=== PATIENT | female | born 1985 | race Two or more races ===

== ENCOUNTER 2016-05-26 11:38 | Inpatient (IN) | payer SELFPAY ==
[~2016-05-26] VITALS: Ht 158.8 cm; Wt 110.2 kg
[~2016-05-26 11:38] MED LIST: RANI150T6 PO
[2016-05-26] MEDS ORDERED: IBUPROFEN 800 MG TABLET. PO PRN (13:45)
[2016-05-26] MEDS ORDERED: TERBUTALINE 1 MG/ML VIAL. SQ PRN (13:45)
[2016-05-26] MEDS ORDERED: BUTORPHANOL 2 MG VIAL. IV PRN (13:45)
[2016-05-26] MEDS ORDERED: FENTANYL PF 100 MCG/2 ML VIAL. IV PRN (13:45)
[2016-05-26] MEDS ORDERED: CITRIC ACID/SODIUM CITRATE 30 ML SOLUTION. PO PRN (13:45)
[2016-05-26] MEDS ORDERED: MAG HYDROX/AL HYDROX/SIMETH 30 ML ORAL.SUSP PO PRN (13:45)
[2016-05-26] MEDS ORDERED: 0.9 % SODIUM CHLORIDE 10 ML DISP.SYRIN. IV PRN (13:45)
[2016-05-26] MEDS ORDERED: LIDOCAINE 1% PF 30 ML VIAL. INJ PRN (13:45)
[2016-05-26] MEDS ORDERED: OXYTOCIN 30 UNIT/500 ML PREMIX 500 ML IV PRN ×2 (13:45)
[2016-05-26 13:49] VITALS: BP 125/79
[2016-05-26] MEDS: IV RINGERS,LACTATED 1000ML 1,000 ML IV PRN ×2 (13:56→20:37)
[2016-05-26 14:36] LABS: BASO # 0.1 x10^3/uL (0.0-0.2); BASO % 1 % (0-3); EOS % 1 % (0-3); HEMATOCRIT 33.4 % (36.0-47.0); HEMOGLOBIN 10.5 g/dL (12.0-15.5); LYMPH # 2.6 x10^3/uL (1.0-4.8); LYMPH % 21 % (24-48); MEAN CORPUSCULAR HEMOGLOBIN 23 pg (25-35); MEAN CORPUSCULAR HGB CONC 31 g/dL (31-37); MEAN CORPUSCULAR VOLUME 73 fL (79-100); MONO % 5 % (0-9); NEUT % 72 % (31-73); PLATELET COUNT 225 x10^3/uL (140-400); RED BLOOD COUNT 4.57 x10^6/uL (3.50-5.40); WHITE BLOOD COUNT 12.3 x10^3/uL (4.0-11.0)
[2016-05-26] MEDS ORDERED: DINOPROSTONE 10 MG SUPP.VAG VG ONE (15:45)
[2016-05-26 16:09] LABS: PLT ESTIMATE ADEQUATE (ADEQUATE); POLYCHROMASIA SLIGHT
[2016-05-26 16:10] LABS: OVALOCYTES OCC; TARGET CELLS OCC
[2016-05-26] MEDS ORDERED: ZOLPIDEM 5 MG TABLET. PO PRN (21:15)
[2016-05-27] MEDS: IV RINGERS,LACTATED 1000ML 1,000 ML IV PRN ×3 (03:23→18:16)
[2016-05-27 05:53] VITALS: BP 125/79
[2016-05-27] MEDS ORDERED: OXYTOCIN in NORMAL SALINE PREMIX 30 UNIT/500 ML BAG. IV ONE (06:00)
[2016-05-27] MEDS ORDERED: LIDOCAINE 2% PF Vial for OR 5 ML VIAL. ONE (11:51)
[2016-05-27] MEDS ORDERED: L&D EPIDURAL CASSETTE 100 ML EP ONE (11:58)
[2016-05-27] MEDS ORDERED: NALOXONE 0.4 MG/ML VIAL. IV PRN (12:15)
[2016-05-27] MEDS ORDERED: EPHEDRINE PF IN SALINE 50 MG/5 ML DISP.SYRIN. IV PRN (12:15)
[2016-05-27] MEDS ORDERED: IV RINGERS,LACTATED 1000ML 1,000 ML IV SCH (12:15)
[2016-05-27] MEDS ORDERED: FENTANYL PF 100 MCG/2 ML VIAL. EPI PRN (12:15)
[2016-05-27] MEDS ORDERED: ROPIVacaine 0.2% IN 0.9%NACL PF 40 MG/20 ML DISP.SYRIN. EPI PRN (12:15)
[2016-05-27] MEDS ORDERED: L&D EPIDURAL CASSETTE 100 ML EP PRN (12:15)
[2016-05-27] MEDS ORDERED: ONDANSETRON PF 4 MG/2 ML VIAL. IV PRN (12:15)
[2016-05-27] MEDS ORDERED: SIMETHICONE 80 MG TAB.CHEW PO PRN (19:30)
[2016-05-27] MEDS ORDERED: 0.9 % SODIUM CHLORIDE 10 ML DISP.SYRIN. IV PRN (19:30)
[2016-05-27] MEDS ORDERED: HYDROCODONE/APAP 5/325MG TABLET. PO PRN (19:30)
[2016-05-27] MEDS ORDERED: BENZOCAINE 20% TOPICAL AEROSOL SPRAY 57GM CAN. TP PRN (19:30)
[2016-05-27] MEDS ORDERED: PHENYLEPH/MINERAL OIL/PETROLAT RECTAL OINTMENT 28GM TUBE. RC PRN (19:30)
[2016-05-27] MEDS ORDERED: ZOLPIDEM 5 MG TABLET. PO PRN (19:30)
[2016-05-27] MEDS ORDERED: DIPHENHYDRAMINE HCL 25 MG CAPSULE PO PRN (19:30)
[2016-05-27] MEDS ORDERED: MAG HYDROX/AL HYDROX/SIMETH 30 ML ORAL.SUSP PO PRN (19:30)
[2016-05-27] MEDS ORDERED: ACETAMINOPHEN 325 MG TABLET. PO PRN (19:30)
[2016-05-27] MEDS ORDERED: OXYTOCIN 30 UNIT/500 ML PREMIX 500 ML IV PRN (19:30)
[2016-05-27] MEDS ORDERED: HYDROCORTISONE 1% TOPICAL OINTMENT 30GM TUBE. TP PRN (19:30)
[2016-05-27] MEDS ORDERED: MAGNESIUM HYDROXIDE 2,400 MG/30 ML ORAL.SUSP. PO PRN (19:30)
[2016-05-27] MEDS: IBUPROFEN 800 MG TABLET. PO SCH (20:43)
[2016-05-27 21:55] VITALS: BP 89/61
[2016-05-28 03:30] VITALS: BP 102/55
[2016-05-28 06:30] VITALS: BP 108/67
[2016-05-28] MEDS: IBUPROFEN 800 MG TABLET. PO SCH ×2 (06:50→18:41)
[2016-05-28] MEDS ORDERED: FERROUS SULFATE 325 MG TABLET PO SCH (08:00)
--- NOTE | 2016-05-28 10:29 | PDOC ---
Provider Note Provider Note Doing well VSS Uterus NTTP FU in AM REMBERTO ADRIAN MD May 28, 2016 10:28
[2016-05-28 10:30] VITALS: BP 96/68
--- NOTE | 2016-05-28 10:33 | PDOC1 ---
OB - History Hx of Present Care: Good Care Ultrasounds: Normal mid trimester US Obstetrical Complications: Growth Restriction, Other (oligo) Medical Complications: None Past Family/Social History * Past Medical, Surgical, Family and Obstetric Histories reviewed from chart. Blood Type: O+ Rubella: Immune RPR/VDRL: Negative GBS Status: Negative HBsAG: Negative OB - Chief Complaint & HPI Date of Admission: Date of Admission: May 26, 2016 at 11:38 Chief Complaint/History : 2 Para: 0 EDC: May 31, 2016 Reason for admission: induction of labor Indication for induction: other (oligo) Admission Nurse Assessment Rev: Yes Problems: OB - Admission Exam Physical Exam Vitals: VS - Last 72 Hours, by Label Date Time Temp Pulse Resp B/P Pulse Ox O2 Delivery O2 Flow Rate FiO2 05/28/16 08:45 Room Air 05/28/16 06:30 97.9 71 14 108/67 98 Room Air 97.9 05/28/16 03:30 98.2 60 16 102/55 97 Room Air 98.2 05/27/16 21:55 Room Air 05/27/16 21:55 98.4 109 20 89/61 98 98.4 05/27/16 12:23 20 05/27/16 05:53 98.7 77 125/79 98.7 05/27/16 01:30 18 Room Air 05/27/16 01:00 18 Room Air 05/26/16 13:49 98.7 77 20 125/79 Room Air 98.7 HEENT: Normal, Nasal Mucosa Normal, Oropharynx Normal, Moist Membranes, Fontanelles Normal Heart: Regular Rate Lungs: Clear, Equal Abdomen: Gravid Extremities: Normal Pulses, No tenderness or swelling Reflexes: Normal Cervical Dilatation: 2cm Effacement: 50% Station: Ballotable Membranes: Intact Amniotic Fluid: Clear Heart Rate: Normal Accelerations: Accelerations Present Intensity: Mild Assessment/Plan Assessment/Plan TIUP oligo IUGR induction ACS REMBERTO ADRIAN MD May 28, 2016 10:33
--- NOTE | 2016-05-28 10:35 | PDOC ---
VAGINAL DELIVERY DATE DATE: 05/28/16 TIME: 10:33 : 2 EDC: May 31, 2016 VAGINAL DELIVERY: VTX VACCUM ASSISTED: Yes NUMBER OF PULLS 3 NUMBER OF POP OFFS 2 SEX: Female WEIGHT 7#1oz Nuchal Cord: No Amniotic Fluid: Clear PAIN: Epidural EPISIOTOMY: Yes EXTENSION: No EBL 400cc COMPLICATIONS None CONDITION Stable Signs of Intrauterine Infectio: None Shoulder Dystocia: No DIAGNOSIS TIUP del Problems: REMBERTO ADRIAN MD May 28, 2016 10:35
[2016-05-28 23:03] VITALS: BP 124/78
[2016-05-28] MEDS ORDERED: INFLUENZA VAX SCREEN BY RX. MC PRN (23:30)
[2016-05-29] MEDS: IBUPROFEN 800 MG TABLET. PO SCH ×2 (05:51→14:57)
[2016-05-29 06:39] VITALS: BP 122/74
[2016-05-29] MEDS ORDERED: FLU VACC QUAD 2016-17 (36MOS+)/PF 0.5 ML SYRINGE. VAX IM ONE (09:00)
[2016-05-29 09:59] VITALS: BP 125/61
--- NOTE | 2016-05-29 10:32 | PDOC3 ---
OB DISCHARGE SUMMARY DATE OF ADMISSION: 05/26/15 DATE OF DISCHARGE: 05/29/15 REASON FOR ADMISSION: Induction of labor PROCEDURES: Ultrasound INTRAPARTUM PROCEDURES: Spontanous Vag Deliv PROCEDURES: None OPERATIONS: None DISCHARGE DIAGNOSIS: Term Delivered DISCHARGE INFORMATION: Activity, Diet HOSPITAL COURSE unremarkable CONDITION AT DISCHARGE Stable REMBERTO ADRIAN MD May 29, 2016 10:32
[2016-05-29] MEDS ORDERED: NAPR500T3 PO (10:35)
[2016-05-29] MEDS ORDERED: HYDR-971 PO (10:35)
== END 2016-05-29 15:30 | disposition home or self-care (01) | DRG 775 ==
LOC: 3 SO LND 11:38 → 3 NORTH 05-27 20:45
PROVIDERS: ADMIT Specialist; ATTEND Specialist
PROC: 3E033VJ Introduction of Other Hormone into Peripheral Vein, Percutaneous Approach (ICD-10-PCS; principal; 2016-05-28)
PROC: 10D07Z6 Extraction of Products of Conception, Vacuum, Via Natural or Artificial Opening (ICD-10-PCS; 2016-05-28)
PROC: 0W8NXZZ Division of Female Perineum, External Approach (ICD-10-PCS; 2016-05-28)
PROC: 3E0S3CZ (ICD-10-PCS; 2016-05-28)
PROC: 00HU33Z Insertion of Infusion Device into Spinal Canal, Percutaneous Approach (ICD-10-PCS; 2016-05-28)
DX: O36.5990 Maternal care for other known or suspected poor fetal growth, unspecified trimester, not applicable or unspecified (principal); O41.03X0 Oligohydramnios, third trimester, not applicable or unspecified; Z3A.39 39 weeks gestation of pregnancy; Z37.0 Single live birth
CPT/HCPCS: 36415; 85007; 85014; 85027; 86593; 86850; 86900; 86901; 90686; J2590; J7120

== ENCOUNTER 2019-05-16 23:41 | Emergency (ER) | payer SELFPAY ==
[~2019-05-16] VITALS: Ht 162.6 cm; Wt 110.2 kg
[~2019-05-16 23:41] MED LIST changes: +HYDR-3164 PO; +NAPR-514 PO; +RANI-376 PO; -RANI150T6 PO
[2019-05-17 00:10] VITALS: BP 153/84
[2019-05-17 00:43] LABS: INFLUENZA A PATIENT NEGATIVE (NEGATIVE); INFLUENZA B PATIENT NEGATIVE (NEGATIVE)
--- NOTE | 2019-05-17 00:58 | PHYS DOC ---
Past Medical History Past Medical History: No Pertinent History (MELVA DAVID APRN) Past Surgical History: No Surgical History (MELVA DAVID APRN) Alcohol Use: None Drug Use: None (MELVA DAVID APRN) Attending Signature I have participated in the care of this patient and I have reviewed and agree with all pertinent clinical information above including history, exam, and recommendations. (MARKY WELLS MD) Adult General Chief Complaint Chief Complaint: FEVER HPI HPI Patient is a 33 year old female who presents with chills and vomiting off and on since Monday. Patient states that she will keep down fluids and food that sometimes it will come back up. She also states she has burning when she urinates. She also is to be checked for . (MELVA DAVID APRN) Review of Systems Review of Systems Constitutional: Denies fever. +chills [] GI: Denies abdominal pain. + nausea, +vomiting, denies bloody stools or diarrhea [] : dysuria or denies hematuria [] All other systems were reviewed and found to be within normal limits, except as documented in this note. (MELVA DAVID APRN) Allergies Allergies Allergies Coded Allergies Type Severity Reaction Last Updated Verified No Known Drug Allergies 11/01/15 No (MARKY WELLS MD) Physical Exam Physical Exam Constitutional: Well developed, well nourished, no acute distress, non-toxic appearance. [] HENT: Normocephalic, atraumatic, bilateral external ears normal, oropharynx moist, no oral exudates, nose normal. [] Eyes: PERRLA, EOMI, conjunctiva normal, no discharge. [] Neck: Normal range of motion, no tenderness, supple, no stridor. [] Cardiovascular:Heart rate regular rhythm, no murmur [] Lungs & Thorax: Bilateral breath sounds clear to auscultation [] Abdomen: Bowel sounds normal, soft, no tenderness, no masses, no pulsatile masses. [] Skin: Warm, dry, no erythema, no rash. [] Back: No tenderness, no CVA tenderness. [] Extremities: No tenderness, no cyanosis, no clubbing, ROM intact, no edema. [] Neurologic: Alert and oriented X 3, normal motor function, normal sensory function, no focal deficits noted. [] Psychologic: Affect normal, judgement normal, mood normal. Normal Physical Exam[] (MELVA DAVID APRN) Current Patient Data Vital Signs Vital Signs Date Time Temp Pulse Resp B/P (MAP) Pulse Ox O2 Delivery O2 Flow Rate FiO2 05/17/19 00:10 98.0 69 12 153/84 (107) 100 Room Air 98.0 (MARKY WELLS MD) Lab Values Laboratory Tests Test 05/17/19 00:12 05/17/19 01:03 05/17/19 01:08 Influenza Type A Antigen Negative (NEGATIVE) Influenza Type B Antigen Negative (NEGATIVE) Urine Collection Type Unknown Urine Color Yellow Urine Clarity Clear Urine pH 6.5 Urine Specific [place] 1.025 Urine Protein Negative mg/dL (NEG-TRACE) Urine Glucose (UA) Negative mg/dL (NEG) Urine Ketones (Stick) Negative mg/dL (NEG) Urine Blood Negative (NEG) Urine Nitrite Positive (NEG) Urine Bilirubin Negative (NEG) Urine Urobilinogen Dipstick 2.0 mg/dL (0.2 mg/dL) Urine Leukocyte Esterase Moderate (NEG) Urine RBC 0 /HPF (0-2) Urine WBC 11-20 /HPF (0-4) Urine Squamous Epithelial Cells Mod /LPF Urine Bacteria Many /HPF (0-FEW) Urine Mucus Mod /LPF POC Urine HCG, Qualitative Hcg positive (Negative) (MARKY WELLS MD) EKG EKG [] (MELVA DAVID APRN) Radiology/Procedures Radiology/Procedures [] (MELVA DAVDI APRN) Course & Med Decision Making Course & Med Decision Making Abdomen soft and nontender. Vital signs within normal limits. Ambulatory with a steady gait. Skin pink warm and dry. Mucous membranes are moist. Alert And oriented. Bilateral tympanic white. Throat is pink without exudates or swelling. Speaks in full clear sentences. No CVA tenderness. Patient denies diarrhea, chest pain, shortness of air, dizziness, syncope, headache, visual changes, numbness or tingling. Urinalysis shows infection. Urinalysis is positive . (MELVA DAVID APRN) Dragon Disclaimer Dragon Disclaimer This electronic medical record was generated, in whole or in part, using a voice recognition dictation system. (MELVA DAVID APRN) Departure Departure Impression: Primary Impression: Additional Impression: UTI (urinary tract infection) Disposition: 01 HOME, SELF-CARE Condition: STABLE Referrals: NO PCP (PCP) Patient Instructions: ABCs of , - Urinary Tract Infection Additional Instructions: Follow-up within [employer] [facility] as soon as possible. Drink plenty of fluids. Take medications as prescribed. Scripts Ondansetron (ONDANSETRON ODT) 4 Mg Tab.rapdis 1 TAB PO PRN Q6-8HRS, #16 TAB Prov: MELVA DAVID APRN 05/17/19 Cephalexin (KEFLEX) 500 Mg Capsule 1 CAP PO BID for 7 Days, #14 CAP 0 Refills Prov: MELVA DAVID APRN 05/17/19 Problem Qualifiers Primary Impression: Weeks of gestation: unspecified Qualified Codes: Z34.90 - Encounter for supervision of normal , unspecified, unspecified trimester Additional Impression: UTI (urinary tract infection) Urinary tract infection type: site unspecified Hematuria presence: without hematuria Qualified Codes: N39.0 - Urinary tract infection, site not specified MELVA DAVID APRN May 17, 2019 00:58 MARKY WELLS MD May 17, 2019 03:02
[2019-05-17 01:21] LABS: BILIRUBIN,URINE NEGATIVE (NEG); CLARITY,URINE CLEAR; COLOR,URINE YELLOW; NITRITE,URINE POSITIVE (NEG); PH,URINE 6.5; PROTEIN,URINE NEGATIVE (NEG-TRACE)
[2019-05-17 01:28] LABS: BACTERIA,URINE MANY /HPF (0-FEW); RBC,URINE 0 /HPF (0-2); SQUAMOUS EPITHELIAL CELL,UR MOD /LPF
[2019-05-17] MEDS ORDERED: ONDA4TAB12 PO (01:34)
[2019-05-17] MEDS ORDERED: CEPH-264 PO (01:34)
== END 2019-05-17 01:40 | disposition home or self-care (01) ==
LOC: ER 23:41
DX: O23.40 Unspecified infection of urinary tract in pregnancy, unspecified trimester (principal); O21.9 Vomiting of pregnancy, unspecified; Z3A.00 Weeks of gestation of pregnancy not specified
CPT/HCPCS: 81001; 81025; 87086; 87804; 99284

== ENCOUNTER 2019-05-27 22:33 | Emergency (ER) | payer SELFPAY ==
[~2019-05-27] VITALS: Ht 162.6 cm; Wt 94.3 kg
[~2019-05-27 22:33] MED LIST changes: +CEPH-264 PO; +ONDA4TAB12 PO
--- NOTE | 2019-05-27 23:57 | PHYS DOC ---
Past Medical History Past Medical History: No Pertinent History Past Surgical History: No Surgical History Alcohol Use: None Drug Use: None Adult General Chief Complaint Chief Complaint: MULTIPLE COMPLAINTS HPI HPI 33-year-old female presents to the emergency department with complaints of fever, body aches, reflux, abdominal pain. She denies any vaginal bleeding or discharge. She does have vomiting, and nausea. Last menstrual period is unknown, patient had a positive test on May 16 however no confirmation of intrauterine . Nothing makes her symptoms worse, nothing makes her symptoms better. Review of Systems Review of Systems Constitutional: fever/chills Eyes: Denies change in visual acuity, redness, or eye pain [] HENT: Denies nasal congestion or sore throat [] Respiratory: Denies cough or shortness of breath [] Cardiovascular: No additional information not addressed in HPI [] GI: + abdominal pain, nausea, vomiting, no bloody stools or diarrhea [] : Denies dysuria or hematuria [] Musculoskeletal: Denies back pain or joint pain [] Integument: Denies rash or skin lesions [] Neurologic: + headache, no focal weakness or sensory changes [] All other systems were reviewed and found to be within normal limits, except as documented in this note. Current Medications Current Medications Current Medications Medications (Trade) Dose Ordered Sig/Steve Start Time Stop Time Status Last Admin Dose Admin Acetaminophen (Tylenol) 1,000 mg 1X ONCE 05/28/19 00:30 05/28/19 00:31 DC 05/28/19 00:15 1,000 MG Ondansetron HCl (Zofran) 4 mg 1X ONCE 05/28/19 00:30 05/28/19 00:31 DC 05/28/19 00:44 4 MG Potassium Chloride (Klor-Con) 40 meq 1X ONCE 05/28/19 01:30 05/28/19 01:31 DC 05/28/19 01:39 40 MEQ Sodium Chloride 1,000 ml @ 1,000 mls/hr Q1H 05/28/19 00:00 05/28/19 00:59 DC 05/28/19 00:15 1,000 MLS/HR Allergies Allergies Allergies Coded Allergies Type Severity Reaction Last Updated Verified I S O L A T I O N *CONTACT* Allergy Unknown 05/21/19 Yes No Known Medication Allergies Allergy Unknown 05/21/19 Yes Physical Exam Physical Exam Constitutional: Well developed, well nourished, no acute distress, non-toxic appearance. [] HENT: Normocephalic, atraumatic, bilateral external ears normal, oropharynx moist, no oral exudates, nose normal. [] Eyes: PERRLA, EOMI, conjunctiva normal, no discharge. [] Cardiovascular:Heart rate regular rhythm, no murmur [] Lungs & Thorax: Bilateral breath sounds clear to auscultation [] Abdomen: Bowel sounds normal, soft, no tenderness, no masses, no pulsatile masses. [] Skin: Warm, dry, no erythema, no rash. [] Back: No tenderness, no CVA tenderness. [] Extremities: No tenderness, no edema. [] Neurologic: Alert and oriented X 3, no focal deficits noted. [] Psychologic: Affect normal, judgement normal, mood normal. [] Current Patient Data Vital Signs Vital Signs Date Time Temp Pulse Resp B/P (MAP) Pulse Ox O2 Delivery O2 Flow Rate FiO2 05/27/19 23:22 99.7 92 18 110/55 (73) 100 Room Air 99.7 Lab Values Laboratory Tests Test 05/28/19 00:20 White Blood Count 5.0 x10^3/uL (4.0-11.0) Red Blood Count 5.08 x10^6/uL (3.50-5.40) Hemoglobin 10.4 g/dL (12.0-15.5) L Hematocrit 33.1 % (36.0-47.0) L Mean Corpuscular Volume 65 fL (79-100) L Mean Corpuscular Hemoglobin 21 pg (25-35) L Mean Corpuscular Hemoglobin Concent 32 g/dL (31-37) Red Cell Distribution Width 17.7 % (11.5-14.5) H Platelet Count 184 x10^3/uL (140-400) Neutrophils (%) (Auto) 62 % (31-73) Lymphocytes (%) (Auto) 20 % (24-48) L Monocytes (%) (Auto) 17 % (0-9) H Eosinophils (%) (Auto) 0 % (0-3) Basophils (%) (Auto) 1 % (0-3) Neutrophils # (Auto) 3.1 x10^3/uL (1.8-7.7) Lymphocytes # (Auto) 1.0 x10^3/uL (1.0-4.8) Monocytes # (Auto) 0.9 x10^3/uL (0.0-1.1) Eosinophils # (Auto) 0.0 x10^3/uL (0.0-0.7) Basophils # (Auto) 0.0 x10^3/uL (0.0-0.2) Platelet Estimate Adequate (ADEQUATE) Large Platelets Occ Hypochromasia Marked Anisocytosis Slight Microcytosis Marked Target Cells Occ Maternal Serum HCG Beta Subunit [id number] mIU/mL (0-5) H Sodium Level 132 mmol/L (136-145) L Potassium Level 3.3 mmol/L (3.5-5.1) L Chloride Level 99 mmol/L (98-107) Carbon Dioxide Level 26 mmol/L (21-32) Anion Gap 7 (6-14) Blood Urea Nitrogen 8 mg/dL (7-20) Creatinine 0.8 mg/dL (0.6-1.0) Estimated GFR (Cockcroft-Gault) 82.6 BUN/Creatinine Ratio 10 (6-20) Glucose Level 88 mg/dL (70-99) Calcium Level 8.7 mg/dL (8.5-10.1) Total Bilirubin 0.4 mg/dL (0.2-1.0) Aspartate Amino Transferase (AST) 24 U/L (15-37) Alanine Aminotransferase (ALT) 24 U/L (14-59) Alkaline Phosphatase 72 U/L (46-116) Total Protein 7.9 g/dL (6.4-8.2) Albumin 3.5 g/dL (3.4-5.0) Albumin/Globulin Ratio 0.8 (1.0-1.7) L Influenza Type A Antigen Negative (NEGATIVE) Influenza Type B Antigen Negative (NEGATIVE) Laboratory Tests 05/28/19 00:20 Laboratory Tests 05/28/19 00:20 EKG EKG [] Radiology/Procedures Radiology/Procedures [facility] [address] [place] [address] IMAGING REPORT Signed PATIENT: MICHAEL BLISS ACCOUNT: [id number] : 1985 LOCATION: ER AGE: 33 SEX: F EXAM STATUS: REG ER ORD. PHYSICIAN: MARKY WELLS MD REASON: abdominal pain in , no confirmed IUP PROCEDURE: OB < 14 WKS Obstetrical ultrasound less than 14 weeks HISTORY: Abdominal pain and . FINDINGS: Transabdominal transducer was utilized. Anteverted uterus measures 10.7 x 7.3 x 9.1 cm. There is a fundal intrauterine single gestational sac eccentric to the right. There is a pole with a crown-rump length of 1.70 cm estimating sonographic gestational age of 8 weeks 1 day and date of delivery of January 06, 2020. heart rate 175 bpm. No subchorionic hemorrhage. Cervix is not visualized on this study. Left ovary measures 2.8 x 3.3 x 2.4 cm with a 1.5 cm hypoechoic cystic structure likely a corpus luteum or dominant follicle there is intact left ovarian blood flow about its periphery. Right ovary measures 1.5 x 2.3 x 1.4 cm. There is intact right ovarian blood flow. No pelvic fluid. IMPRESSION: Single living intrauterine with estimated sonographic gestational age of 8 weeks 1 day as described above. Electronically signed by: Prakash Frye MD (05/28/2019 1:23 AM) [facility] DICTATED and SIGNED BY: PRAKASH FRYE MD DATE: 05/28/19 0123 [] Course & Med Decision Making Course & Med Decision Making Pertinent Labs and Imaging studies reviewed. (See chart for details) []33-year-old female presents to the emergency department with complaints of fever, body aches, reflux, abdominal pain. She denies any vaginal bleeding or discharge. She does have vomiting, and nausea. Last menstrual period is unknown, patient had a positive test on May 16 however no confirmation of intrauterine . Nothing makes her symptoms worse, nothing makes her symptoms better. Labs reviewed - hypokalemia (replaced in the ER) US reviewed - IUP at 8 weeks, unknown LMP Beta HCG reviewed consistent with US Zofran as needed Return precautions discussed Dragon Disclaimer Dragon Disclaimer This electronic medical record was generated, in whole or in part, using a voice recognition dictation system. Departure Departure Impression: Primary Impression: Abdominal pain affecting Additional Impression: Viral syndrome Disposition: HOME, SELF-CARE Condition: IMPROVED Referrals: NO PCP (PCP) Patient Instructions: Abdominal Pain During , [id number], Viral Syndrome Additional Instructions: Recommend follow up with PCP 3 - 5 days Return to the ER with worsening symptoms, intractable pain, fever, altered mental status Tylenol/Motrin as needed for pain Take zofran as needed for nausea Influenza negative Low potassium in ER - replaced in ER Scripts Ondansetron Hcl (ZOFRAN) 4 Mg Tablet 1 TAB PO PRN Q6-8HRS for nausea, #12 TAB Prov: MARKY WELLS MD 05/28/19 Problem Qualifiers MARKY WELLS MD May 27, 2019 23:57
[2019-05-28] MEDS: IV NORMAL SALINE 1000ML BAG 1,000 ML IV SCH (00:15)
[2019-05-28] MEDS: ACETAMINOPHEN 500 MG TABLET PO ONE (00:15)
[2019-05-28 00:33] LABS: BASO % 1 % (0-3); EOS % 0 % (0-3); HEMATOCRIT 33.1 % (36.0-47.0); HEMOGLOBIN 10.4 g/dL (12.0-15.5); LYMPH % 20 % (24-48); MEAN CORPUSCULAR HEMOGLOBIN 21 pg (25-35); MEAN CORPUSCULAR HGB CONC 32 g/dL (31-37); MEAN CORPUSCULAR VOLUME 65 fL (79-100); MONO # 0.9 x10^3/uL (0.0-1.1); MONO % 17 % (0-9); NEUT # 3.1 x10^3/uL (1.8-7.7); NEUT % 62 % (31-73); PLATELET COUNT 184 x10^3/uL (140-400); RED BLOOD COUNT 5.08 x10^6/uL (3.50-5.40); RED CELL DISTRIBUTION WIDTH 17.7 % (11.5-14.5)
[2019-05-28 00:38] LABS: CALCIUM 8.7 mg/dL (8.5-10.1); CREATININE 0.8 mg/dL (0.6-1.0); GFR 82.6; POTASSIUM 3.3 mmol/L (3.5-5.1)
[2019-05-28] MEDS: ONDANSETRON PF 4 MG/2 ML VIAL. IV ONE (00:44)
[2019-05-28 00:46] LABS: ALBUMIN 3.5 g/dL (3.4-5.0); ALBUMIN/GLOBULIN RATIO 0.8 (1.0-1.7); TOTAL BILIRUBIN 0.4 mg/dL (0.2-1.0); TOTAL PROTEIN 7.9 g/dL (6.4-8.2)
[2019-05-28 00:50] LABS: INFLUENZA A PATIENT NEGATIVE (NEGATIVE); INFLUENZA B PATIENT NEGATIVE (NEGATIVE)
[2019-05-28 01:04] LABS: ANISOCYTOSIS SLIGHT; HYPOCHROMIA MARKED; MICROCYTOSIS MARKED; PLT ESTIMATE ADEQUATE (ADEQUATE)
[2019-05-28 01:05] LABS: TARGET CELLS OCC
--- NOTE | 2019-05-28 01:26 | RAD ---
Obstetrical ultrasound less than 14 weeks HISTORY: Abdominal pain and . FINDINGS: Transabdominal transducer was utilized. Anteverted uterus measures 10.7 x 7.3 x 9.1 cm. There is a fundal intrauterine single gestational sac eccentric to the right. There is a pole with a crown-rump length of 1.70 cm estimating sonographic gestational age of 8 weeks 1 day and date of delivery of January 06, 2020. heart rate 175 bpm. No subchorionic hemorrhage. Cervix is not visualized on this study. Left ovary measures 2.8 x 3.3 x 2.4 cm with a 1.5 cm hypoechoic cystic structure likely a corpus luteum or dominant follicle there is intact left ovarian blood flow about its periphery. Right ovary measures 1.5 x 2.3 x 1.4 cm. There is intact right ovarian blood flow. No pelvic fluid. IMPRESSION: Single living intrauterine with estimated sonographic gestational age of 8 weeks 1 day as described above. Electronically signed by: Everette Fyre MD (05/28/2019 1:23 AM) [facility]
[2019-05-28 01:30] VITALS: BP 96/52
[2019-05-28] MEDS: POTASSIUM CHLORIDE 20 MEQ TABLET.ER. PO ONE (01:39)
[2019-05-28 01:42] LABS: BILIRUBIN,URINE NEGATIVE (NEG); CLARITY,URINE CLEAR; COLOR,URINE YELLOW; NITRITE,URINE NEGATIVE (NEG); PH,URINE 6.5; PROTEIN,URINE NEGATIVE (NEG-TRACE)
[2019-05-28] MEDS ORDERED: ONDA4TAB7 PO (01:45)
[2019-05-28 01:47] LABS: BACTERIA,URINE MANY /HPF (0-FEW); RBC,URINE 0 /HPF (0-2); SQUAMOUS EPITHELIAL CELL,UR MANY /LPF
== END 2019-05-28 01:55 | disposition home or self-care (01) ==
LOC: ER 22:33
DX: O98.511 Other viral diseases complicating pregnancy, first trimester (principal); Z3A.08 8 weeks gestation of pregnancy; O21.9 Vomiting of pregnancy, unspecified; O26.891 Other specified pregnancy related conditions, first trimester; R10.9 Unspecified abdominal pain; R51 Headache; B34.9 Viral infection, unspecified; Z91.018 Allergy to other foods
CPT/HCPCS: 36415; 76801; 80053; 81001; 84702; 85025; 87086; 87804; 96361; 96374; 99285; J2405; J7030

== ENCOUNTER 2021-04-09 06:19 | Inpatient (IN) | payer SELFPAY ==
[~2021-04-09] VITALS: Ht 158.8 cm; Wt 111.2 kg
[~2021-04-09 06:19] MED LIST changes: +ONDA4TAB7 PO
[2021-04-09] MEDS ORDERED: BUTORPHANOL 2 MG/ML VIAL. IVP PRN ×2 (06:30)
[2021-04-09] MEDS ORDERED: ACETAMINOPHEN 325 MG TABLET. PO PRN ×2 (06:30→19:00)
[2021-04-09] MEDS ORDERED: LIDOCAINE 1% PF 30 ML VIAL. INJ PRN (06:30)
[2021-04-09] MEDS ORDERED: OXYTOCIN 30 UNIT/500 ML PREMIX 500 ML IV PRN ×3 (06:30→19:00)
[2021-04-09] MEDS ORDERED: TERBUTALINE 1 MG/ML VIAL. SQ PRN (06:30)
[2021-04-09] MEDS ORDERED: 0.9 % SODIUM CHLORIDE 10 ML DISP.SYRIN. IV PRN ×2 (06:30→19:00)
[2021-04-09 07:05] VITALS: BP 143/76
[2021-04-09 07:23] LABS: BILIRUBIN,URINE NEGATIVE (NEG); CLARITY,URINE CLEAR; COLOR,URINE YELLOW; NITRITE,URINE NEGATIVE (NEG); PH,URINE 6.5 (<5.0-8.0); PROTEIN,URINE NEGATIVE (NEG-TRACE)
[2021-04-09 07:34] LABS: BARBITURATES NEG (NEG); BENZODIAZEPINES NEG (NEG); CANNABINOIDS NEG (NEG); COCAINE NEG (NEG); METHADONE NEG (NEG); OPIATES NEG (NEG); PHENCYCLIDINE NEG (NEG)
[2021-04-09 07:43] LABS: AMPHETAMINE/METHAMPHETAMINE NEG (NEG)
[2021-04-09 07:47] LABS: BASO # 0.1 x10^3/uL (0.0-0.2); BASO % 1 % (0-3); EOS # 0.2 x10^3/uL (0.0-0.7); EOS % 2 % (0-3); HEMATOCRIT 29.3 % (36.0-47.0); HEMOGLOBIN 9.6 g/dL (12.0-15.5); LYMPH # 2.2 x10^3/uL (1.0-4.8); LYMPH % 19 % (24-48); MEAN CORPUSCULAR HEMOGLOBIN 24 pg (25-35); MEAN CORPUSCULAR HGB CONC 33 g/dL (31-37); MEAN CORPUSCULAR VOLUME 72 fL (79-100); MONO # 0.8 x10^3/uL (0.0-1.1); MONO % 7 % (0-9); NEUT # 8.4 x10^3/uL (1.8-7.7); NEUT % 72 % (31-73); PLATELET COUNT 237 x10^3/uL (140-400); RED BLOOD COUNT 4.06 x10^6/uL (3.50-5.40); RED CELL DISTRIBUTION WIDTH 14.5 % (11.5-14.5); WHITE BLOOD COUNT 11.7 x10^3/uL (4.0-11.0)
[2021-04-09 07:49] LABS: BACTERIA,URINE FEW /HPF (0-FEW)
[2021-04-09] MEDS: IV RINGERS,LACTATED 1000ML 1,000 ML IV SCH ×2 (07:58→12:06)
[2021-04-09] MEDS ORDERED: PENICILLIN G K 5,000,000 UNIT in IV DEXTROSE 5% 100ML 100 ML IV ONE (08:00)
--- NOTE | 2021-04-09 08:56 | PDOC1 ---
[facility] H&P Date of Admission: Date of Admission: Apr 09, 2021 at 06:19 History of Present Illness: EDC: 04/07/21 LMP: 07/01/20 35y @ 40.2 by L=29 presents for indxn. She was counselled in the office for indxn since she was past her EDC. The pt reports no ctxs to this point. The pt had a C/S with her last delivery. They attempted a ECV at , but the baby remained transverse so they had to do a C/S. The pt has been PMH: Denies PSH: Denies Meds: PNV, ASA, Fe All: NKDA OBHx: 2 x TSVD, 1 x C/S SH: no tob, no EtOH FH: noncontributory Medications: Meds: Current Medications Medications (Trade) Dose Ordered Sig/Steve Route PRN Reason Start Time Stop Time Status Last Admin Dose Admin Ringer's Solution 1,000 ml @ 125 mls/hr Q8H IV 04/09/21 06:30 04/09/21 07:58 Oxytocin 500 ml @ 0 mls/hr CONT PRN IV SEE I/O RECORD 04/09/21 06:30 04/09/21 07:59 Penicillin G Potassium [id number] unit/Dextrose 100 ml @ 100 mls/hr 1X ONCE IV 04/09/21 08:00 04/09/21 08:59 04/09/21 08:17 Allergies: Coded Allergies: I S O L A T I O N *CONTACT* (Verified Allergy, Unknown, 05/21/19) ESBL No Known Medication Allergies (Verified Allergy, Unknown, 05/21/19) Physical Exam: Vital Signs: Vital Signs Date Time Temp Pulse Resp B/P (MAP) Pulse Ox O2 Delivery O2 Flow Rate FiO2 04/09/21 07:05 99.1 83 18 143/76 (98) Room Air 99.1 PE: GENERAL: No apparent distress. Alert and oriented. HEENT: Head normocephalic, atraumatic. NECK: Supple LUNGS: Clear to auscultation. HEART: RRR, S1, S2 present, pulses intact ABDOMEN: Soft, positive bowel sounds. EXTREMITIES: No cyanosis or edema. NEUROLOGIC: Normal speech, normal tone PSYCHIATRIC: Normal affect, normal mood. SKIN: No ulceration. FHT: 120s +acels/no decels/mLTV [place]: 10 min SVE: 3 Labs: Laboratory Tests Test 04/09/21 06:28 04/09/21 07:15 Urine Collection Type Unknown Urine Color Yellow Urine Clarity Clear Urine pH 6.5 (<5.0-8.0) Urine Specific [place] 1.010 (1.000-1.030) Urine Protein Negative mg/dL (NEG-TRACE) Urine Glucose (UA) Negative mg/dL (NEG) Urine Ketones (Stick) Negative mg/dL (NEG) Urine Blood Trace (NEG) Urine Nitrite Negative (NEG) Urine Bilirubin Negative (NEG) Urine Urobilinogen Dipstick 1.0 mg/dL (0.2 mg/dL) Urine Leukocyte Esterase Large (NEG) Urine RBC 3-5 /HPF (0-2) Urine WBC 11-20 /HPF (0-4) Urine Squamous Epithelial Cells Many /LPF Urine Bacteria Few /HPF (0-FEW) Urine Mucus Mod /LPF Urine Opiates Screen Neg (NEG) Urine Methadone Screen Neg (NEG) Urine Barbiturates Neg (NEG) Urine Phencyclidine Screen Neg (NEG) Urine Amphetamine/Methamphetamine Neg (NEG) Urine Benzodiazepines Screen Neg (NEG) Urine Cocaine Screen Neg (NEG) Urine Cannabinoids Screen Neg (NEG) Urine Ethyl Alcohol Neg (NEG) White Blood Count 11.7 x10^3/uL (4.0-11.0) H Red Blood Count 4.06 x10^6/uL (3.50-5.40) Hemoglobin 9.6 g/dL (12.0-15.5) L Hematocrit 29.3 % (36.0-47.0) L Mean Corpuscular Volume 72 fL (79-100) L Mean Corpuscular Hemoglobin 24 pg (25-35) L Mean Corpuscular Hemoglobin Concent 33 g/dL (31-37) Red Cell Distribution Width 14.5 % (11.5-14.5) Platelet Count 237 x10^3/uL (140-400) Neutrophils (%) (Auto) 72 % (31-73) Lymphocytes (%) (Auto) 19 % (24-48) L Monocytes (%) (Auto) 7 % (0-9) Eosinophils (%) (Auto) 2 % (0-3) Basophils (%) (Auto) 1 % (0-3) Neutrophils # (Auto) 8.4 x10^3/uL (1.8-7.7) H Lymphocytes # (Auto) 2.2 x10^3/uL (1.0-4.8) Monocytes # (Auto) 0.8 x10^3/uL (0.0-1.1) Eosinophils # (Auto) 0.2 x10^3/uL (0.0-0.7) Basophils # (Auto) 0.1 x10^3/uL (0.0-0.2) Laboratory Tests 04/09/21 07:15 Laboratory Tests 04/09/21 07:15 Assessment & Plan: A/P 35y @ 40.2 by L=29 1.) Indxn on Pit 2.) Prev C/S x 1 desires TOLAC 3.) Anemia Hgb 9.5 4.) AMA 5.) Elevated GTT 0 of 4 values of 3 hr GTT elevated 6.) Elevated BP only initial BP, the rest have been nml 7.) Fetus cat I FHT 8.) GBS pos on PCN MANSOOR ALVAREZ MD Apr 09, 2021 08:56
[2021-04-09] MEDS: PENICILLIN G K 2,500,000 UNIT in IV DEXTROSE 5% 50 ML IV SCH ×2 (12:05→16:04)
--- NOTE | 2021-04-09 18:48 | PDOC4 ---
VAGINAL DELIVERY DATE DATE: 04/09/21 TIME: 18:48 TIME Patient delivered a viable female over intact perineum at 1822. Wt 7 lb 6 oz. Apgars 9/9. Placenta delivered spontaneously, intact with 3VC. 2nd degree laceration repaired with 20 vicryl in nml fashion. Good hemostasis noted. 20 U of Pit given with IVF. EBL 300 cc. WEIGHT Weight [ ] MANSOOR ALVAREZ MD Apr 09, 2021 18:48
[2021-04-09] MEDS ORDERED: MAGNESIUM HYDROXIDE 2,400 MG/30 ML ORAL.SUSP. PO PRN (19:00)
[2021-04-09] MEDS ORDERED: MAG HYDROX/ALUMINUM HYD/SIMETH 30 ML ORAL.SUSP PO PRN (19:00)
[2021-04-09] MEDS ORDERED: BENZOCAINE 20% TOPICAL AEROSOL SPRAY 57GM CAN. TP PRN (19:00)
[2021-04-09] MEDS ORDERED: MMR per PROTOCOL. MC PRN (19:00)
[2021-04-09] MEDS ORDERED: oxyCODONE/APAP 5/325 1 TAB TABLET PO PRN (19:00)
[2021-04-09] MEDS ORDERED: PHENYLEPH/MINERAL OIL/PETROLAT RECTAL OINTMENT TUBE. RC PRN (19:00)
[2021-04-09] MEDS ORDERED: HYDROCORTISONE 1% TOPICAL OINTMENT 30GM TUBE. TP PRN (19:00)
[2021-04-09] MEDS ORDERED: diphenhydrAMINE HCL 25 MG CAPSULE PO PRN (19:00)
[2021-04-09] MEDS ORDERED: ZOLPIDEM 5 MG TABLET. PO PRN (19:00)
[2021-04-09] MEDS ORDERED: SIMETHICONE 80 MG TAB.CHEW PO PRN (19:00)
[2021-04-09] MEDS ORDERED: TDaP (Adacel) per PROTOCOL. MC PRN (19:00)
[2021-04-09 20:17] VITALS: BP 134/79
--- NOTE | 2021-04-09 22:00 | NUR ---
Patient asked about giving the baby a bottle, educated the mother of the benefits of early . Patient stated "I will try first" Baby at this time.
[2021-04-09] MEDS: IBUPROFEN 400 MG TABLET. PO PRN (22:08)
[2021-04-09 22:13] VITALS: BP 106/71
[2021-04-10] VITALS (8 sets, daily range): BP systolic 82–140; BP diastolic 45–80
[2021-04-10] MEDS: IBUPROFEN 400 MG TABLET. PO PRN ×2 (06:07→17:25)
[2021-04-10 09:14] LABS: HEMOGLOBIN 8.3 g/dL (12.0-15.5); RED BLOOD COUNT 3.69 x10^6/uL (3.50-5.40); RED CELL DISTRIBUTION WIDTH 14.4 % (11.5-14.5); WHITE BLOOD COUNT 16.8 x10^3/uL (4.0-11.0)
[2021-04-10] MEDS: PRENATAL MULTIVITAMIN TABLET. PO SCH (10:58)
[2021-04-10] MEDS: DOCUSATE SODIUM 100 MG CAPSULE. PO PRN ×2 (10:59→17:25)
[2021-04-10] MEDS: FERROUS SULFATE 325 MG TABLET. PO SCH ×2 (10:59→17:25)
--- NOTE | 2021-04-10 11:47 | PDOC ---
[facility] PROGRESS NOTE Date of Service: DATE: 04/10/21 TIME: 11:46 Subjective: Pt with good pain control. Mike PO. Voiding. Minimal lochia. Objective: Vital Signs: Vital Signs Date Time Temp Pulse Resp B/P (MAP) Pulse Ox O2 Delivery O2 Flow Rate FiO2 04/09/21 07:05 99.1 83 18 143/76 (98) Room Air 99.1 04/09/21 16:17 99 Vital Signs Date Time Temp Pulse Resp B/P (MAP) Pulse Ox O2 Delivery O2 Flow Rate FiO2 04/10/21 07:50 97.9 56 18 107/58 (74) 100 Room Air 97.9 Labs: Laboratory Tests Test 04/10/21 08:15 White Blood Count 16.8 x10^3/uL (4.0-11.0) H Red Blood Count 3.69 x10^6/uL (3.50-5.40) Hemoglobin 8.3 g/dL (12.0-15.5) L Hematocrit 27.0 % (36.0-47.0) L Mean Corpuscular Volume 73 fL (79-100) L Mean Corpuscular Hemoglobin 23 pg (25-35) L Mean Corpuscular Hemoglobin Concent 31 g/dL (31-37) Red Cell Distribution Width 14.4 % (11.5-14.5) Platelet Count 219 x10^3/uL (140-400) Laboratory Tests 04/10/21 08:15 Laboratory Tests 04/10/21 08:15 Physical Exam: GENERAL: No apparent distress. Alert and oriented. HEENT: Head normocephalic, atraumatic. NECK: Supple LUNGS: Clear to auscultation. HEART: RRR, S1, S2 present, pulses intact ABDOMEN: Soft, positive bowel sounds. EXTREMITIES: No cyanosis or edema. NEUROLOGIC: Normal speech, normal tone PSYCHIATRIC: Normal affect, normal mood. SKIN: No ulceration. FFNT below umb No C/C/E Assessment & Plan: A/P 35y PPD #1 s/p 1.) PP doing well 2.) Anemia Hgb 9.6 -> 8.3, Fe BID 3.) GHTN a few milds during delivery, BP nml since delivery 4.) Cont PP care MANSOOR ALVAREZ MD Apr 10, 2021 11:47
[2021-04-11] MEDS ORDERED: IBUP-1060 PO (06:07)
[2021-04-11] MEDS ORDERED: DOCU-109 PO (06:07)
[2021-04-11] MEDS ORDERED: FERR325T14 PO (06:07)
--- NOTE | 2021-04-11 06:09 | PDOC ---
GEAR TESTER PROGRESS NOTE Date of Service: DATE: 04/11/21 TIME: 06:09 Subjective: Pt with good pain control. Mike PO. Voiding. Minimal lochia Objective: Vital Signs: Vital Signs Date Time Temp Pulse Resp B/P (MAP) Pulse Ox O2 Delivery O2 Flow Rate FiO2 04/10/21 07:50 97.9 56 18 107/58 (74) 100 Room Air 97.9 Vital Signs Date Time Temp Pulse Resp B/P (MAP) Pulse Ox O2 Delivery O2 Flow Rate FiO2 04/10/21 23:00 98.6 70 18 123/73 (90) 99 98.6 04/10/21 17:15 Room Air Labs: Laboratory Tests Test 04/10/21 08:15 White Blood Count 16.8 x10^3/uL (4.0-11.0) H Red Blood Count 3.69 x10^6/uL (3.50-5.40) Hemoglobin 8.3 g/dL (12.0-15.5) L Hematocrit 27.0 % (36.0-47.0) L Mean Corpuscular Volume 73 fL (79-100) L Mean Corpuscular Hemoglobin 23 pg (25-35) L Mean Corpuscular Hemoglobin Concent 31 g/dL (31-37) Red Cell Distribution Width 14.4 % (11.5-14.5) Platelet Count 219 x10^3/uL (140-400) Laboratory Tests 04/10/21 08:15 Laboratory Tests 04/10/21 08:15 Physical Exam: GENERAL: No apparent distress. Alert and oriented. HEENT: Head normocephalic, atraumatic. NECK: Supple LUNGS: Clear to auscultation. HEART: RRR, S1, S2 present, pulses intact ABDOMEN: Soft, positive bowel sounds. EXTREMITIES: No cyanosis or edema. NEUROLOGIC: Normal speech, normal tone PSYCHIATRIC: Normal affect, normal mood. SKIN: No ulceration. FFNT below umb No C/C/E Assessment & Plan: A/P 35y PPD #2 s/p 1.) PP doing well 2.) Anemia Hgb 9.6 -> 8.3, Fe BID 3.) GHTN a few milds during delivery, BP nml since delivery 4.) Contraception Depo given 5.) D/c home MANSOOR ALVAREZ MD Apr 11, 2021 06:09
[2021-04-11 07:35] VITALS: BP 131/83
--- NOTE | 2021-04-11 07:53 | DS ---
DATE OF DISCHARGE: 04/11/2021 ADMISSION DIAGNOSES: 1. Intrauterine at 40 weeks and 2 days by last menstrual period equal to a 29-week ultrasound. 2. Induction of labor. 3. Previous section x 1, desires trial of labor. 4. Anemia. 5. Advanced maternal age. 6. Elevated glucose tolerance test. 7. Gestational hypertension. 8. Group B Streptococcus positive. DISCHARGE DIAGNOSES: 1. Intrauterine at 40 weeks and 2 days by last menstrual period equal to a 29-week ultrasound. 2. Induction of labor. 3. Previous section x 1, desires trial of labor. 4. Anemia. 5. Advanced maternal age. 6. Elevated glucose tolerance test. 7. Gestational hypertension. 8. Group B Streptococcus positive. PROCEDURE: Vaginal delivery after . BRIEF HOSPITAL COURSE: The patient is a 35-year-old 5, para 3-0-1-3, who presented to Labor and Delivery at 40 weeks and 2 days by LMP equal to a 29-week ultrasound for induction. The patient was seen in the office the previous day and was counseled on induction of labor since she was past her EDC. The patient presented the following afternoon. The patient had never been consulted with a doctor, so discussion was held with the patient to return the following morning for induction of labor. When the patient presented, she reported that she had had no contractions. The patient reported that her last delivery was a . They attempted an external cephalic version, but was unable to move the baby from breech position. The patient had been counseled on the risks of section including risk of rupture as well as risk of failure. The patient wished to proceed. The patient ultimately delivered by vaginal delivery. See delivery note for full detail. By day #2, the patient was meeting all discharge criteria and subsequently discharged home. Of note, the patient's hemoglobin was 9.6 on admission and after delivery, was found to be 8.3. The patient was also noted to have a few mild elevated blood pressures during delivery, but never any signs or symptoms of preeclampsia. After delivery, the patient's blood pressures all remained normal. The patient was also given a shot of Depo prior to discharge per her desires. DISCHARGE INSTRUCTIONS: The patient was told not to lift anything greater than 20 pounds, have pelvic rest for 6 weeks. CALL IF: The patient was to call if she had fevers, chills, nausea, vomiting, abdominal pain or any additional questions or concerns. FOLLOWUP APPOINTMENT: The patient was to follow up on 05/20/2021 at 2:00 p.m. for a visit. DISCHARGE MEDICATIONS: The patient was given a prescription for Motrin 800 mg, 30 pills; Colace 100 mg, 30 pills and ferrous sulfate 325 mg, [address]: Madsion TID: [id number]
[2021-04-11] MEDS: DOCUSATE SODIUM 100 MG CAPSULE. PO PRN (08:25)
[2021-04-11] MEDS: IBUPROFEN 400 MG TABLET. PO PRN (08:25)
[2021-04-11] MEDS: PRENATAL MULTIVITAMIN TABLET. PO SCH (08:25)
[2021-04-11] MEDS: FERROUS SULFATE 325 MG TABLET. PO SCH (08:25)
[2021-04-11 11:30] VITALS: BP 146/90
--- NOTE | 2021-04-11 11:38 | NUR ---
Dismissed amb to sister in car with baby in car seat. rx given for gatito elise . stable on feet.
--- NOTE | 2021-04-20 15:11 | PATHOLOGY ---
[facility] Accession Number: [id number] . 01 Material submitted: . placenta - PLACENTA AND CORD . 01 Clinical history: . INDUCTION DELIVERY TOLAC DELIVERY , AMA, , DELIVERY 04/09/21 BABY FE AT 1822 . 02 Diagnosis: Placenta, vaginal delivery: - Mature bishop placenta weighing 394 grams (at approximately the 10th percentile for a 40-week gestation). - Three vessel umbilical cord with eccentric insertion into the chorionic plate. - Meconium staining of membranes. - Acute deciduitis with focal decidual necrosis. - Recent and remote retromembranous hematoma. - Recent retroplacental hematoma. - Chorangiosis. (MLK:[facility]; 04/20/2021) QTP 04/20/2021 1332 Local . 02 Electronically signed: . Jacek Cosme MD, Pathologist NPI- [id number] . 01 Gross description: . Fixative: Formalin Labeled: Placenta Specimen received: Bishop placenta with attached membranes and umbilical cords Trimmed placental weight: 394 g Dimensions: 16.1 x 14.8 x 3.8 cm membranes: [place]-cao, translucent membrane rupture: 5.4 cm from placental margin surface: Intact displaying a normal arborizing vasculature pattern, as well as moderate circummarginate insertion Umbilical cord: 24.1 cm in length, 1.1-1.6 cm in diameter Umbilical cord insertion: Slightly eccentric, 5.0 cm from the closest placental margin Number of umbilical vessels: 3 Umbilical cord appearance: White-love with minimal helical twisting Maternal surface: Intact and complete with a minimal amount of adherent blood coagulum Cut surfaces: Red-brown Abnormalities: A single yellow-love lesion measuring 1.3 cm . Roving Or Yarn Color Checker sections are submitted as follows: A1 surface vessels and proximal umbilical cord A2 membranes and umbilical cord A3-A4 solar sales representative sections of maternal surface, with the lesion submitted in A4 ([facility]; 04/13/2021) . After initial microscopic examination, additional solar sales representative sections of maternal surface are submitted in cassettes A5 through A8. ([facility]; 04/19/2021) QA/[facility] 04/19/2021 0843 Local . 02 Pathologist provided ICD-10: Z3A.40, O77.0 . 02 CPT . 165293 Specimen Comment: A courtesy copy of this report has been sent to [phone] Specimen Comment: Report sent to [facility]formed [facility]: [facility] [address] [id number] MD Yehuda Leach MD Phone: [phone] Performed at: [facility] [address] [id number] MD Delvin Calix MD Phone: [phone]
== END 2021-04-11 11:38 | disposition home or self-care (01) | DRG 807 ==
LOC: 3 SO LND 06:19
PROVIDERS: ADMIT Obstetrics & Gynecology; ATTEND Obstetrics & Gynecology
PROC: 10E0XZZ Delivery of Products of Conception, External Approach (ICD-10-PCS; principal; 2021-04-09)
PROC: 0KQM0ZZ Repair Perineum Muscle, Open Approach (ICD-10-PCS; 2021-04-09)
DX: O34.211 Maternal care for low transverse scar from previous cesarean delivery (principal); Z37.0 Single live birth; O99.824 Streptococcus B carrier state complicating childbirth; O13.4 Gestational [pregnancy-induced] hypertension without significant proteinuria, complicating childbirth; O99.02 Anemia complicating childbirth; Z3A.40 40 weeks gestation of pregnancy; D64.9 Anemia, unspecified; R73.02 Impaired glucose tolerance (oral); Z20.822 Contact with and (suspected) exposure to COVID-19; O70.1 Second degree perineal laceration during delivery
CPT/HCPCS: 36415; 80307; 81001; 85025; 85027; 86592; 86850; 86900; 86901; 87077; 87086; 87426; J0595; J2540; J2590; J3490; J7060; J7120; U0003; G0378